=== PATIENT | male | born 1980 | race Caucasian/White ===

== ENCOUNTER → 2019-01-14 | Outpatient (CLI) | payer OTHER ==
--- NOTE | 2019-01-14 19:03 | REP ---
Right ankle four views History: Injury There is no acute fracture or dislocation. The joint space is normal in appearance. Soft tissue swelling is present. I impression: There is no acute fracture or dislocation. Electronically Signed by Kevin Mendieta MD 01/14/2019 06:54 P
== END ==
LOC: M LRY 17:54
PROVIDERS: ATTEND Physician Assistant
DX: S99.911A Unspecified injury of right ankle, initial encounter (principal); X58.XXXA Exposure to other specified factors, initial encounter; Y92.9 Unspecified place or not applicable